=== PATIENT | male | born 1935 | race Caucasian/White ===

== ENCOUNTER 2019-04-14 14:40 | Emergency (ER) | payer MEDICARE ==
[2006-09-09 11:18] VITALS: BP 112/57
[~2019-04-14] VITALS: Ht 182.9 cm; Wt 90.9 kg
[~2019-04-14 14:40] MED LIST: ASPIRIN 81M81 MG/TA2 PO; AVODART 0.5MG0.5 MG PO; CALCIUM + D 6001 TA1 PO; CARDI-OMEGA1000 MG PO; COZAAR100 MG PO; FLOMAX 0.40.4 MG/CAP PO; NORCO 325 MG-7.1 TAB PO; PRILOSEC 20MG20 MG PO; PROSCAR 5MG5 MG PO; TENEX2 MG PO; VITAMIN C500 MG PO; ZOCOR 40MG40 MG PO; [UNRECOGNIZED DRUG - OTHER]
[2019-04-14 15:05] LABS: HEMOGLOBIN 12.4 g/dl (13.5-18.0); MEAN CELL VOLUME 92 fl (80.0-100.0); MEAN CORPUSCULAR HEMOGLOBIN 30 pg (27.0-31.0); MEAN CORPUSCULAR HGB CONC 33 g/dl (33.0-37.0); MEAN PLATELET VOLUME 11.5 fl (7.4-10.4); PLATELET COUNT 213 K/mm3 (130-400); RED BLOOD COUNT 4.13 M/mm3 (4.20-5.60); REDCELL DISTRIBUTION WIDTH-CV 12.8 % (11.5-14.5)
[2019-04-14 15:12] LABS: ALBUMIN 3.1 gm/dL (3.5-5.0); BILIRUBIN,TOTAL 1.1 mg/dL (0.0-1.0); CALCIUM 8.5 mg/dL (8.4-10.2); CREATININE, serum 1.11 (0.66-1.25); TOTAL PROTEIN 5.7 gm/dL (6.4-8.2)
[2019-04-14 15:14] LABS: INR 1.1 (0.8-3.0); PROTHROMBIN TIME 12.7 SECONDS (9.7-12.8)
[2019-04-14 15:20] VITALS: BP 114/72; PULSE 69
[2019-04-14 15:38] LABS: BAND 11 % (0-10); EOSINOPHIL 2 % (0-4); LYMPHOCYTE 11 % (20.0-51.0); NEUTROPHILS 73 % (42.0-75.2)
[2019-04-14 15:39] LABS: PLATELET ESTIMATE NORMAL (NORMAL)
--- NOTE | 2019-04-14 16:50 | NUR ---
SW responded to the ED to meet with patient's family after patient was brought in via EMS code red. SW provided support to patient's , Leni, and other family members in the ED. Patient was transferred to [facility] via [facility].
== END 2019-04-14 15:30 | disposition short-term general hospital (02) ==
LOC: COL.ER 14:40
PROVIDERS: Emergency Medicine
DX: S51.012A Laceration without foreign body of left elbow, initial encounter (principal); S81.812A Laceration without foreign body, left lower leg, initial encounter; S61.412A Laceration without foreign body of left hand, initial encounter; I10 Essential (primary) hypertension; I95.9 Hypotension, unspecified; E11.9 Type 2 diabetes mellitus without complications; Z79.82 Long term (current) use of aspirin; Z23 Encounter for immunization; W17.89XA Other fall from one level to another, initial encounter; Y92.73 Farm field as the place of occurrence of the external cause
CPT/HCPCS: J0690; J3010; J7030

== ENCOUNTER 2021-02-18 13:43 | Outpatient (RCR) | payer MEDICARE | END 2021-05-19 | disposition home or self-care (01) | LOC: MKS.ESL.PT | DX: I87.301 Chronic venous hypertension (idiopathic) without complications of right lower extremity (principal) ==